=== PATIENT | female | born 1940 | race Caucasian/White ===

== ENCOUNTER → 2016-08-03 | Outpatient (CLI) | payer OTHER ==
[~2016-08-03] VITALS: Ht 177.8 cm; Wt 88.0 kg
[~2016-08-03] MED LIST: BAYER CHEWABLE81 MG PO; ELIQUIS5 MG PO; HYDROCHLOROTH12.5 MG PO; K-DUR 20 MEQ T20 MEQ PO; LASIX 40 MG TAB40 M2 PO; LIPITOR 20 MG T20 M1 PO; LOSARTAN-HCTZ1 EAC2 PO; ONE DAILY COMP1 EAC1 PO; PEPCID AC20 M1 PO; PLAVIX 75 MG TA75 M1 PO; PROVENTIL HFA6.7 G1 INH; SIMVASTATIN20 MG PO; TOPROL XL50 MG PO; VITAMIN D32000 UNI1 PO; VITAMINC500 PO
--- NOTE | ~2016-08-03 | P ---
[facility] [place] [address] PROCEDURE REPORT Name: MARCIAJAMEEWAQARHOMER Monie [id number] Admission: 08/03/16 Attend Phys: Vitaliy Richards Discharge: Date of : 38 Report #: [id number] THIS REPORT FOR: //name// CC: Vitaliy Navarro DATE OF SERVICE: 08/03/2016 PROCEDURE PERFORMED: Colonoscopy with biopsies. HISTORY OF PRESENT ILLNESS: The patient is a 76-year-old female with a history of colon polyps, last colonoscopy 3 years ago. She also has a family history of colon cancer in her mother. She reports her bowel movements have been normal. DESCRIPTION OF PROCEDURE: The risks and benefits of the procedure were explained to the patient, those risks including but not limited to bleeding, perforation and the risk of sedation. She understood these risks and gave informed consent. Sedation was given using ketamine and propofol per anesthesia. Next, a digital rectal exam was initially performed, which was normal. Next, using a standard Fujinon colonoscope, the scope was placed in the patient's anus and advanced under direct vision to the cecum. The overall prep was excellent. In the cecum, there was a 3 mm sessile polyp. This was removed with cold forceps, otherwise normal. The ileocecal valve was normal. The ascending, transverse and descending colon were normal. A few scattered diverticula were noted in the sigmoid colon, no evidence of inflammation, otherwise normal. The rectal mucosa was normal. On retroflexion, no abnormalities were noted. The scope was then withdrawn and the procedure terminated. The patient tolerated the procedure well. IMPRESSION: 1. Small colonic polyp. 2. Sigmoid diverticulosis. 3. Otherwise, normal colonoscopy. RECOMMENDATIONS: 1. Await biopsy results. 2. Repeat colonoscopy in 5 years. Thank you for allowing me to participate in her care. By: [id number] Vitaliy Arriola MD /nt
--- NOTE | ~2016-08-03 | P ---
[facility] [place] [address] PROCEDURE REPORT Name: CHANDRAHOMER Lomax [facility] [id number] Admission: 08/03/16 Attend Phys: Vitaliy Richards Discharge: Date of : 38 Report #: [id number] THIS REPORT FOR: //name// CC: Vitaliy Navarro MD DATE OF SERVICE: 08/03/2016 PROCEDURE PERFORMED: Upper endoscopy with esophageal dilation. HISTORY OF PRESENT ILLNESS: The patient is a 76-year-old female with a history of dysphagia. She underwent an upper endoscopy with dilation 3 years ago, which was helpful. Biopsies at that time were negative for eosinophilic esophagitis. The patient is currently taking Pepcid on daily basis. PROCEDURE: The risks and benefits of the procedure were explained to the patient, those risks including, but not limited to bleeding, perforation, the risk of sedation. She understood these risks and gave informed consent. Sedation was given using ketamine and propofol per anesthesia. Next, using a standard [employer] upper endoscope, the scope was placed in the patient's mouth and advanced under direct vision through the esophagus, stomach and into the second portion of the duodenum. The larynx was normal in appearance. The esophagus, although somewhat tortuous, which was otherwise normal. No evidence of stricture. No esophagitis was noted. Upon entering the stomach, a small hiatal hernia was noted. Overall, the gastric mucosa was normal. The pylorus was normal and patent. The duodenal bulb, first and second portion were all normal. The scope was then brought back up into the patient's stomach and a Savary guidewire was inserted through the scope, leaving the guidewire in place. Next, a 48-Latvian Savary dilation of the esophagus was performed without difficulty. The wire and dilator were removed. The scope was reintroduced into the patient's stomach. There was no evidence of mucosal tear of the esophagus after dilation. The scope was then withdrawn and the procedure terminated. The patient tolerated the procedure well. IMPRESSION: 1. Small hiatal hernia. 2. Otherwise, normal upper endoscopy. RECOMMENDATIONS: 1. Observe the patient post-dilation. 2. If the patient has continued dysphagia in the future, may need to consider swallow study or esophageal manometry. [address] [address] PROCEDURE REPORT Name: HOMER ARTIS Room #: REG [facility]#: [id number] Admission: 08/03/16 Attend Phys: Vitaliy Richards Discharge: Date of : 38 Report #: [id number] Thank you for allowing me to participate in her care. By: [id number] Vitaliy Arriola MD /nt
--- NOTE | ~2016-08-03 | S ---
[facility] [place] [address] SURGICAL PATH RPT PROCEDURE Name: HOMER ARTIS Room #: REG [facility]#: [id number] Admission: 08/03/16 Date of : 38 Discharge: Report #: [id number] Path Case #: [id number] PATHOLOGY REPORT COLLECTION DATE: 08/03/2016 RECEIVED DATE: 08/03/2016 SUBMITTING PHYS: Dr. Vitaliy Arriola OTHER PHYS: SPECIMEN(S) RECEIVED: A.Cecal polyp * * * * * * * * * * * * FINAL DIAGNOSIS: Colonic mucosa, "cecal polyp biopsy": - Tubular adenoma. - There is no evidence of high-grade dysplasia, or malignancy. ([facility]; d/t: 08/04/16) PATHOLOGIST: Eric Tiwari M.D. REPORT ELECTRONICALLY SIGNED BY: Eric Tiwari M.D. DATE/TIME: 08/04/2016 15:15 * * * * * * * * * * * * GROSS PATHOLOGY: Received in formalin labeled "Homer Artis cecal polyp," are 3 segments of joseph soft tissue measuring 0.5 x 0.3 x 0.2 cm in aggregate dimensions and ranging from 0.2 to 0.5 cm in maximum dimension. The specimen is submitted entirely in cassette A1. ([facility]; 08/03/2016) CLINICAL HISTORY: Pre-op diagnosis: Screening history: polyp Post-op diagnosis: Colon polyp INITIAL CPT CODE(S): A; 79821 Professional services performed by [facility] at [facility] [address] [place] [address] Technical services performed by [facility] at [address] [place] [id number]. [facility] [address] [place] [address] SURGICAL PATH RPT PROCEDURE Name: HOMER ARTIS Room #: REG [facility] Pitts#: [id number] Admission: 08/03/16 Date of : 38 Discharge: Report #: [id number] Path Case #: [id number] [facility] [address] [address] PHONE: [phone] DIRECTOR: Jayden Basurto M.D. * * * END OF REPORT * * *
== END | disposition home or self-care (01) ==
LOC: GI 06:51
DX: D12.0 Benign neoplasm of cecum (principal); K57.30 Diverticulosis of large intestine without perforation or abscess without bleeding; K44.9 Diaphragmatic hernia without obstruction or gangrene; I10 Essential (primary) hypertension; I48.91 Unspecified atrial fibrillation; K21.9 Gastro-esophageal reflux disease without esophagitis; E78.00 Pure hypercholesterolemia, unspecified; M19.90 Unspecified osteoarthritis, unspecified site; Z90.710 Acquired absence of both cervix and uterus; Z96.641 Presence of right artificial hip joint
CPT/HCPCS: 62110; 62900

== ENCOUNTER → 2016-12-21 | Outpatient (CLI) | payer OTHER | LOC: RAD 03:33 | DX: Z12.31 Encounter for screening mammogram for malignant neoplasm of breast (principal) ==

== ENCOUNTER → 2017-10-03 | Outpatient (CLI) | payer OTHER | LOC: EDSTATUS 10-02 14:43 → NUC 10-02 14:43 | DX: Z13.820 Encounter for screening for osteoporosis (principal); M85.88 Other specified disorders of bone density and structure, other site; Z78.0 Asymptomatic menopausal state ==

== ENCOUNTER → 2018-06-21 | Outpatient (CLI) | payer OTHER | LOC: CAT 06-13 12:55 | DX: I71.01 Dissection of thoracic aorta (principal); I71.02 Dissection of abdominal aorta; K80.80 Other cholelithiasis without obstruction; I51.7 Cardiomegaly; M47.814 Spondylosis without myelopathy or radiculopathy, thoracic region; Z96.641 Presence of right artificial hip joint ==

== ENCOUNTER → 2018-11-13 | Outpatient (CLI) | payer OTHER | LOC: RAD 16:32 | DX: M47.896 Other spondylosis, lumbar region (principal); M48.062 Spinal stenosis, lumbar region with neurogenic claudication; M48.07 Spinal stenosis, lumbosacral region ==

== ENCOUNTER → 2019-01-17 | Outpatient (CLI) | payer OTHER | LOC: RAD 14:19 | DX: Z12.31 Encounter for screening mammogram for malignant neoplasm of breast (principal) ==

== ENCOUNTER 2020-01-11 17:54 | Emergency (ER) | payer OTHER ==
[~2020-01-11] VITALS: Ht 177.8 cm; Wt 91.6 kg
[2020-01-11] MEDS ORDERED: PERCOCET 5-3251 EACH PO (19:29)
[2020-01-11 19:31] VITALS: BP 132/66
== END 2020-01-11 19:40 | disposition home or self-care (01) ==
LOC: ER 17:54
DX: S72.091A Other fracture of head and neck of right femur, initial encounter for closed fracture (principal); I10 Essential (primary) hypertension; E78.5 Hyperlipidemia, unspecified; K21.9 Gastro-esophageal reflux disease without esophagitis; I48.91 Unspecified atrial fibrillation; Z79.82 Long term (current) use of aspirin; Z79.899 Other long term (current) drug therapy; Z90.710 Acquired absence of both cervix and uterus; W18.39XA Other fall on same level, initial encounter; Y92.89 Other specified places as the place of occurrence of the external cause; Y93.89 Activity, other specified; Y99.8 Other external cause status

== ENCOUNTER 2020-01-29 11:12 | Emergency (ER) | payer OTHER ==
[~2020-01-29] VITALS: Ht 177.8 cm; Wt 80.7 kg
[~2020-01-29 11:12] MED LIST changes: +PERCOCET 5-3251 EACH PO
[2020-01-29 12:10] LABS: ABSOLUTE NEUTROPHILS 6.6 thou/uL (1.4-8.2); BASOPHILS 0.4 % (0.0-2.0); EOSINOPHILS 0.7 % (0.0-3.0); HEMOGLOBIN 10.9 gm/dL (12.0-15.0); LYMPHOCYTES 13.2 % (24.0-44.0); MCH 34.9 pg (26.0-34.0); MCHC 33.9 g/dL (28.0-37.0); MONOCYTES 6.3 % (1.0-8.0); PLATELET COUNT 345 thou/uL (150-400); POLYS 79.4 % (36.0-66.0); RBC 3.11 mil/uL (4.20-5.00); WBC 8.3 thou/uL (4.0-11.0)
[2020-01-29 12:29] LABS: ANION GAP 11 mmol/L (7-16); BUN 39 mg/dL (7-18); CALCIUM 9.7 mg/dL (8.5-10.1); CHLORIDE 103 mmol/L (98-107); CO2 28 mmol/L (21-32); CREATININE 1.3 mg/dL (0.6-1.0); GLUCOSE 118 mg/dL (74-106); POTASSIUM 3.5 mmol/L (3.5-5.1); SODIUM 142 mmol/L (136-145)
--- NOTE | 2020-01-29 12:32 | EKG ---
[facility] [place] [address] ELECTROCARDIOGRAM REPORT Name: HOMER ARTIS Room #: PRE [facility].#: [id number] Admission: Attend Phys: Discharge: Date of : 38 Report #: [id number] THIS REPORT FOR: cc: Manan Navarro MD, Rene P. MD Santiago, Patrick MD [facility] ~ THIS REPORT FOR: //name// [facility] ED Test Date: 2020-01-29 Test Time: 11:49:48 Pat Name: HOMER ARTIS Department: Room: Gender: F Insurance Billing Clerk: [facility] : 1940 Requested By: Olivier Olivares Order Number: [id number] MD: Blake Nino Measurements Intervals [place] Rate: 84 P: AL: QRS: -22 QRSD: 94 T: 115 QT: 376 QTc: 445 Interpretive Statements Atrial fibrillation Borderline left axis deviation Anteroseptal infarct, age indeterminate Compared to ECG 06/18/2012 17:14:10 Myocardial infarct finding now present Sinus rhythm no longer present Electronically Signed On 01-29-2020 12:32:28 CDT by Blake Nino [email or web address] <ELECTRONICALLY SIGNED> By: Blake Nino MD, FACC 01/29/20 1232 [id number] [id number] Blake Nino MD, [facility] /EPI
[2020-01-29 12:37] LABS: TROPONIN-I <0.06 ng/mL (<0.06)
[2020-01-29 14:21] VITALS: BP 135/60
== END 2020-01-29 14:21 | disposition home or self-care (01) ==
LOC: ER 11:12
PROVIDERS: Nurse Practitioner
DX: R06.00 Dyspnea, unspecified (principal); I10 Essential (primary) hypertension; E78.00 Pure hypercholesterolemia, unspecified; I48.91 Unspecified atrial fibrillation; K21.9 Gastro-esophageal reflux disease without esophagitis; Z90.49 Acquired absence of other specified parts of digestive tract; Z88.5 Allergy status to narcotic agent; Z96.641 Presence of right artificial hip joint; Z88.6 Allergy status to analgesic agent

== ENCOUNTER → 2020-03-06 | Outpatient (CLI) | payer OTHER | LOC: SJCVC 15:15 | PROVIDERS: ATTEND Internal Medicine Cardiovascular Disease | DX: I48.21 Permanent atrial fibrillation (principal); R94.31 Abnormal electrocardiogram [ECG] [EKG]; I10 Essential (primary) hypertension; E78.00 Pure hypercholesterolemia, unspecified; I65.23 Occlusion and stenosis of bilateral carotid arteries; I38 Endocarditis, valve unspecified; D68.59 Other primary thrombophilia; I71.01 Dissection of thoracic aorta; Z79.01 Long term (current) use of anticoagulants; Z79.899 Other long term (current) drug therapy ==

== ENCOUNTER → 2020-03-12 | Outpatient (CLI) | payer OTHER | LOC: RAD 08:46 | PROVIDERS: ATTEND Family Medicine | DX: Z12.31 Encounter for screening mammogram for malignant neoplasm of breast (principal) ==

== ENCOUNTER → 2020-06-22 | Outpatient (CLI) | payer OTHER | LOC: SJCVCIMAG 08:50 | PROVIDERS: ATTEND Internal Medicine Cardiovascular Disease | DX: R94.31 Abnormal electrocardiogram [ECG] [EKG] (principal); I08.3 Combined rheumatic disorders of mitral, aortic and tricuspid valves; I10 Essential (primary) hypertension; E78.5 Hyperlipidemia, unspecified; R00.1 Bradycardia, unspecified; D68.59 Other primary thrombophilia; E78.00 Pure hypercholesterolemia, unspecified; I38 Endocarditis, valve unspecified; I71.01 Dissection of thoracic aorta; I73.9 Peripheral vascular disease, unspecified; I25.10 Atherosclerotic heart disease of native coronary artery without angina pectoris; Z79.899 Other long term (current) drug therapy; Z72.89 Other problems related to lifestyle; Z86.73 Personal history of transient ischemic attack (TIA), and cerebral infarction without residual deficits; Z88.8 Allergy status to other drugs, medicaments and biological substances ==

== ENCOUNTER → 2021-01-22 | Outpatient (CLI) | payer OTHER | LOC: SJCVCIMAG 08:46 | PROVIDERS: ATTEND Internal Medicine Cardiovascular Disease | DX: R94.31 Abnormal electrocardiogram [ECG] [EKG] (principal); I65.23 Occlusion and stenosis of bilateral carotid arteries; I25.10 Atherosclerotic heart disease of native coronary artery without angina pectoris; I48.21 Permanent atrial fibrillation; I71.01 Dissection of thoracic aorta; I34.1 Nonrheumatic mitral (valve) prolapse; D68.59 Other primary thrombophilia; I10 Essential (primary) hypertension; E78.00 Pure hypercholesterolemia, unspecified; Z86.73 Personal history of transient ischemic attack (TIA), and cerebral infarction without residual deficits; Z79.899 Other long term (current) drug therapy; Z88.8 Allergy status to other drugs, medicaments and biological substances; Z72.89 Other problems related to lifestyle ==

== ENCOUNTER → 2021-03-15 | Outpatient (CLI) | payer OTHER | LOC: RAD 10:37 | PROVIDERS: ATTEND Family Medicine | DX: Z12.31 Encounter for screening mammogram for malignant neoplasm of breast (principal); N64.89 Other specified disorders of breast ==